=== PATIENT | female | born 1985 | race Caucasian/White ===

== ENCOUNTER 2023-04-27 05:33 | Emergency (ER) | payer OTHER ==
[~2023-04-27] VITALS: Ht 165.1 cm; Wt 59.0 kg
[2023-04-27] MEDS ORDERED: NARCAN4 M1 (05:54)
[2023-04-27 06:30] VITALS: BP 181/117
== END 2023-04-27 06:55 | disposition home or self-care (01) ==
LOC: ER 05:33 → EDBD 05:33 → ER 06:55
DX: T40.411A Poisoning by fentanyl or fentanyl analogs, accidental (unintentional), initial encounter (principal); X58.XXXA Exposure to other specified factors, initial encounter
CPT/HCPCS: 96372; 99284-25; J2310

== ENCOUNTER 2023-06-15 20:33 | Emergency (ER) | payer OTHER ==
[~2023-06-15] VITALS: Ht 177.8 cm; Wt 79.4 kg
[~2023-06-15 20:33] MED LIST: CEPHALEXIN500 M1 PO; NARCAN4 M1; SULTRIDS PO
[2023-06-15 21:35] LABS: BASOPHILS ABSOLUTE AUTO 0.03 K/mm3 (0.00-0.23); BASOPHILS PERCENT AUTO 1 % (0-2); EOSINOPHILS PERCENT AUTO 2 % (0-6); Hematocrit 32.2 % (33.0-51.0); Hemoglobin 10.3 g/dL (11.5-16.0); IMMATURE GRAN ABSOLUTE AUTO 0.03 K/mm3 (0.00-0.10); IMMATURE GRAN PERCENT AUTO 1 % (0-1); LYMPHOCYTES ABSOLUTE AUTO 0.43 K/mm3 (0.84-5.20); LYMPHOCYTES PERCENT AUTO 7 % (21-46); MONOCYTES ABSOLUTE AUTO 0.33 K/mm3 (0.16-1.47); MONOCYTES PERCENT AUTO 5 % (4-13); Mean Corpuscular HGB 28.5 pg (26.0-34.0); Mean Corpuscular Volume 89 fL (80-100); Mean Platelet Volume 10.1 fL (9.1-12.4); NEUTROPHILS ABSOLUTE AUTO 5.54 K/mm3 (1.96-9.15); NEUTROPHILS PERCENT AUTO 86 % (41-73); Platelet Count 177 K/mm3 (150-400); RDW Coefficient Variation 14.7 % (11.7-14.2); RDW Standard Deviation 47.2 fL (35.1-46.3); Red Blood Cell Count 3.62 M/mm3 (3.80-5.20); White Blood Cell Count 6.46 K/mm3 (4.00-11.30)
[2023-06-15 21:56] LABS: Albumin, Blood 3.6 g/dL (3.4-5.0); Albumin/Globulin Ratio 0.9 (0.8-1.8); Bilirubin, Total 0.7 mg/dL (0.1-1.0); Bun/Creatinine Ratio 25.8 (12.0-20.0); Calcium, Blood 8.6 mg/dL (8.5-10.1); Creatinine, Blood 0.66 mg/dL (0.40-1.00); Globulin, Blood 3.8 g/dL (2.2-4.0); Potassium, Blood 3.6 mmol/L (3.5-5.5); Total Protein, Blood 7.4 g/dL (6.4-8.2)
[2023-06-15] MEDS ORDERED: NARCAN4 M1 (23:39)
[2023-06-16 00:30] VITALS: BP 173/96
== END 2023-06-16 00:25 | disposition home or self-care (01) ==
LOC: ER 20:33
PROVIDERS: Emergency Medicine
DX: R11.2 Nausea with vomiting, unspecified (principal); F19.10 Other psychoactive substance abuse, uncomplicated; F11.90 Opioid use, unspecified, uncomplicated; Z88.6 Allergy status to analgesic agent; Z91.040 Latex allergy status
CPT/HCPCS: 80053; 83690; 84703; 85025; 96361; 96374; 99284-25; A9270; J2405; J7030

== ENCOUNTER 2024-03-26 01:21 | Emergency (ER) | payer OTHER ==
[~2024-03-26] VITALS: Ht 175.3 cm; Wt 65.8 kg
[2024-03-26] MEDS ORDERED: Trimethoprim/Sulfamethoxazole DS Tab PO ONE (01:30)
[2024-03-26] MEDS ORDERED: Bactrim Ds Tab1 EACH PO (01:31)
[2024-03-26 01:34] VITALS: BP 163/96
== END 2024-03-26 01:38 ==
LOC: ER 01:21
DX: L03.116 Cellulitis of left lower limb (principal); Z88.6 Allergy status to analgesic agent; Z91.040 Latex allergy status
CPT/HCPCS: 99282; A9270

== ENCOUNTER 2024-06-30 18:07 | Emergency (ER) | payer OTHER ==
[~2024-06-30] VITALS: Ht 177.8 cm; Wt 65.8 kg
[~2024-06-30 18:07] MED LIST changes: +Bactrim Ds Tab1 EACH PO
[2024-06-30 18:50] LABS: BASOPHILS ABSOLUTE AUTO 0.04 K/mm3 (0.00-0.23); BASOPHILS PERCENT AUTO 0 % (0-2); EOSINOPHILS ABSOLUTE AUTO 0.08 K/mm3 (0.00-0.68); EOSINOPHILS PERCENT AUTO 1 % (0-6); Hemoglobin 14.4 g/dL (11.5-16.0); IMMATURE GRAN ABSOLUTE AUTO 0.03 K/mm3 (0.00-0.10); IMMATURE GRAN PERCENT AUTO 0 % (0-1); LYMPHOCYTES ABSOLUTE AUTO 0.79 K/mm3 (0.84-5.20); LYMPHOCYTES PERCENT AUTO 8 % (21-46); MONOCYTES ABSOLUTE AUTO 0.41 K/mm3 (0.16-1.47); MONOCYTES PERCENT AUTO 4 % (4-13); Mean Corpuscular HGB 29.6 pg (26.0-34.0); Mean Corpuscular HGB Conc 32.7 g/dL (31.5-36.5); Mean Corpuscular Volume 91 fL (80-100); Mean Platelet Volume 9.3 fL (9.1-12.4); NEUTROPHILS ABSOLUTE AUTO 8.98 K/mm3 (1.96-9.15); NEUTROPHILS PERCENT AUTO 87 % (41-73); Platelet Count 265 K/mm3 (150-400); RDW Coefficient Variation 13.7 % (11.7-14.2); RDW Standard Deviation 45.9 fL (35.1-46.3); Red Blood Cell Count 4.86 M/mm3 (3.80-5.20); White Blood Cell Count 10.33 K/mm3 (4.00-11.30)
[2024-06-30 19:09] LABS: Alanine Aminotransfer (ALT/SGP 19 U/L (12-78); Albumin, Blood 4.1 g/dL (3.4-5.0); Albumin/Globulin Ratio 0.9 (0.8-1.8); Alk Phos 113 U/L (50-136); Anion Gap 10 mmol/L (3-11); Aspartate Aminotrans (AST/SGOT 27 U/L (12-37); Beta HCG, Quantitative, Serum <1 mIU/mL (0-3); Bilirubin, Total 0.4 mg/dL (0.1-1.0); Blood Urea Nitrogen 22 mg/dL (8-24); CO2, Blood 21 mmol/L (21-32); Calcium, Blood 9.1 mg/dL (8.5-10.1); Chloride, Blood 109 mmol/L (98-108); Creatinine, Blood 0.96 mg/dL (0.40-1.00); Globulin, Blood 4.4 g/dL (2.2-4.0); Glomerular Filtration Rate 77 (60-); Glucose, Blood 97 mg/dL (70-99); Potassium, Blood 4.3 mmol/L (3.5-5.5); Sodium, Blood 136 mmol/L (136-145); Total Protein, Blood 8.5 g/dL (6.4-8.2)
[2024-06-30] MEDS ORDERED: NS 1,000 ML IV SCH (23:30)
[2024-06-30] MEDS ORDERED: Prochlorperazine Edisylate 10 mg Vial IV ONE (23:30)
[2024-06-30] MEDS ORDERED: DiphenhydrAMINE HCl 50 MG/ML 1ML Vial IV ONE (23:30)
[2024-07-01] MEDS ORDERED: CefTRIAXone Sodium 1,000 MG in NS 50 ML IV ONE (04:10)
[2024-07-01] MEDS ORDERED: NS 1,000 ML IV SCH (04:10)
[2024-07-01 05:05] LABS: Source, Urine Clean Catch
[2024-07-01 05:10] LABS: Bilirubin, Urine Neg (Neg); Blood, Urine 5+ (Neg); Glucose Qualitative, Urine Neg (Neg); Ketones, Urine Neg (Neg); Leukocyte Esterase, Urine Neg (Neg); Nitrite, Urine Neg (Neg); Protein, Urine 1+ (Neg); Specific Gravity, Urine 1.015 (1.003-1.022); Urobilinogen, Urine NORM (Normal)
[2024-07-01 05:30] VITALS: BP 191/118
[2024-07-01 05:30] LABS: U Amphetamine Screen DETECTED; U Barbituate Screen Not Detected; U Benzodiazapine Screen Not Detected; U Buprenorphine Screen Not Detected; U Cannabinoids Screen DETECTED; U Cocaine Screen Not Detected; U Methadone Screen Not Detected; U Methamphetamine Screen DETECTED; U Opiates Screen Not Detected; U Oxycodone Screen Not Detected; U Phencyclidine Screen Not Detected
[2024-07-01 05:35] LABS: Appearance, Urine Clear (Clear); Color, Urine Yellow (P-Yellow)
[2024-07-01 05:36] LABS: Bacteria Rare /hpf; Squamous Epithelial Cells Mod /hpf (Few); White Blood Cells, Urine 0-2 /hpf (0-5)
[2024-07-01] MEDS ORDERED: CEFP200 PO (05:50)
== END 2024-07-01 06:41 | disposition home or self-care (01) ==
LOC: ER 18:07
PROVIDERS: Emergency Medicine
DX: N12 Tubulo-interstitial nephritis, not specified as acute or chronic (principal); N20.0 Calculus of kidney; E86.0 Dehydration; F15.10 Other stimulant abuse, uncomplicated; Z88.8 Allergy status to other drugs, medicaments and biological substances; Z91.040 Latex allergy status
CPT/HCPCS: 74177; 76830; 76856; 80053; 81001; 84702; 85025; 93005; 93010; 96374-59; 96375; 99284-25; J0696; J0780; J1200; J7030; Q9967

== ENCOUNTER 2024-10-16 18:19 | Emergency (ER) | payer OTHER ==
[~2024-10-16] VITALS: Ht 180.3 cm; Wt 74.4 kg
[~2024-10-16 18:19] MED LIST changes: +CEFP200 PO
[2024-10-16 19:05] VITALS: BP 159/107
[2024-10-16] MEDS ORDERED: RX Prepack 2 Sprays Naloxone HCL 4 MG/SPRAY UD ONE (19:55)
[2024-10-16] MEDS ORDERED: SUBOXONE 8 MG-1 EACH SL (20:01)
== END 2024-10-16 20:21 | disposition home or self-care (01) ==
LOC: ER 18:19
DX: T40.2X1A Poisoning by other opioids, accidental (unintentional), initial encounter (principal); F11.90 Opioid use, unspecified, uncomplicated; R56.9 Unspecified convulsions; Z88.6 Allergy status to analgesic agent; Z91.040 Latex allergy status; Z79.2 Long term (current) use of antibiotics
CPT/HCPCS: 99283; A9270

== ENCOUNTER 2025-03-16 02:03 | Emergency (ER) | payer OTHER ==
[~2025-03-16] VITALS: Ht 177.8 cm; Wt 63.5 kg
[~2025-03-16 02:03] MED LIST changes: +SUBOXONE 8 MG-1 EACH SL
[2025-03-16] MEDS ORDERED: Ketorolac Tromethamine 30mg Vial IM ONE (06:35)
[2025-03-16] MEDS ORDERED: CEPH500 PO (07:07)
[2025-03-16] MEDS ORDERED: IBUP400 PO (07:09)
[2025-03-16 07:32] VITALS: BP 185/117
[2025-03-16] MEDS ORDERED: Robaxin750 MG PO (07:47)
== END 2025-03-16 07:52 | disposition home or self-care (01) ==
LOC: ER 02:03
DX: S09.90XA Unspecified injury of head, initial encounter (principal); S70.02XA Contusion of left hip, initial encounter; S80.12XA Contusion of left lower leg, initial encounter; S80.11XA Contusion of right lower leg, initial encounter; Y00.XXXA Assault by blunt object, initial encounter; L03.116 Cellulitis of left lower limb; I10 Essential (primary) hypertension; Z88.8 Allergy status to other drugs, medicaments and biological substances; Z91.040 Latex allergy status; Z79.899 Other long term (current) drug therapy
CPT/HCPCS: 70450; 73502; 73590; 96372; 99284-25; A9270; J1885

== ENCOUNTER 2025-03-26 00:10 | Emergency (ER) | payer OTHER ==
[~2025-03-26] VITALS: Ht 175.3 cm; Wt 63.5 kg
[~2025-03-26 00:10] MED LIST changes: +CEPH500 PO; +IBUP400 PO; +Robaxin750 MG PO
[2025-03-26] MEDS ORDERED: Trimethoprim/Sulfamethoxazole DS Tab PO ONE (01:20)
[2025-03-26 01:32] VITALS: BP 158/96
== END 2025-03-26 01:32 | disposition home or self-care (01) ==
LOC: ER 00:10
DX: L03.116 Cellulitis of left lower limb (principal); L03.115 Cellulitis of right lower limb; Z88.6 Allergy status to analgesic agent; Z91.040 Latex allergy status
CPT/HCPCS: 99283; A9270